=== PATIENT | female | born 1960 | race Caucasian/White ===

== ENCOUNTER → 2017-08-08 | Outpatient (CLI) | payer OTHER ==
--- NOTE | 2017-08-08 19:28 | Diagnostic Imaging Report ---
INDICATION: Routine screening. Comparison is made with prior study from 01/24/2013. 2-D and 3-D bilateral screening mammography was performed with CAD. The current study was also evaluated with a Computer Aided Detection (CAD) system. FINDINGS: Both breasts are heterogeneously dense, limiting the sensitivity of mammography. No dominant mass or malignant-appearing microcalcifications are seen. The axillae are unremarkable. IMPRESSION: No mammographic features suspicious for malignancy are identified. ACR BI-RADS Category 1: Negative. Result letter will be mailed to the patient. Note: At least 10% of breast cancer is not imaged by mammography. Dictated by: Dictated on workstation # [id number]
== END ==
LOC: RAD 14:37
PROVIDERS: ATTEND Nurse Practitioner
DX: Z12.31 Encounter for screening mammogram for malignant neoplasm of breast (principal)
CPT/HCPCS: 77067

== ENCOUNTER → 2018-05-12 | Outpatient (CLI) | payer OTHER | LOC: CARD 11:18 | PROVIDERS: ATTEND Nurse Practitioner Family | DX: R07.9 Chest pain, unspecified (principal) | CPT/HCPCS: 93005 ==

== ENCOUNTER 2020-04-22 18:44 | Emergency (ER) | payer OTHER ==
[~2020-04-22] VITALS: Ht 160 cm; Wt 83.4 kg
--- NOTE | 2020-04-22 19:22 | ED Lower Extremity ---
General Chief Complaint: Lower Extremity Stated Complaint: R FOOT PAIN / INJ Source: patient Exam Limitations: no limitations History of Present Illness Date Seen by Provider: Apr 22, 2020 Time Seen by Provider: 19:16 Initial Comments This is a well-appearing 60-year-old female who presents to the ER with complaints of right ankle pain and medial right foot pain after rolling her ankle in a parking lot around 3pm this afternoon. States she caught herself prior to falling so she did not sustain any other injury. Was able to walk on affected extremity right after incident, however after walking a while in [facility] pain became increasingly worse especially with ambulation. No pre-treatment prior to arrival. Allergies and Home Medications Allergies Coded Allergies: NKANo Known Allergies (Unverified Allergy, Mild, 10/17/08) diphenhydramine HCl (Unverified Adverse Reaction, 10/23/10) too sleepy Patient Home Medication List Home Medication List Reviewed: Yes Review of Systems Constitutional: no symptoms reported EENTM: no symptoms reported Respiratory: no symptoms reported Cardiovascular: no symptoms reported Gastrointestinal: no symptoms reported Genitourinary: no symptoms reported Musculoskeletal: see HPI Skin: no symptoms reported Psychiatric/Neurological: No Symptoms Reported Physical Exam Vital Signs Vital Signs - First Documented 04/22/20 04/22/20 19:11 20:36 Temp 36.9 Pulse 63 Resp 16 B/P (MAP) 173/93 (119) Pulse Ox 100 O2 Delivery Room Air Capillary Refill : Height, Weight, BMI Height: '" Weight: lbs. oz. kg; BMI Method: General Appearance: WD/WN, no apparent distress HEENT: PERRL/EOMI, normal ENT inspection Neck: full range of motion, normal inspection Cardiovascular: normal peripheral pulses, regular rate, rhythm, no murmur Respiratory: lungs clear, normal breath sounds Ankles: left ankle non-tender, left ankle normal inspection, left ankle normal range of motion, left ankle no evidence of injury; right ankle limited range of motion, right ankle soft tissue tenderness, right ankle swelling Feet: left foot non-tender, left foot normal inspection, left foot normal range of motion, left foot no evidence of injury; right foot soft tissue tenderness Neurologic/Tendon: normal sensation, normal motor functions, normal tendon functions Neurologic/Psychiatric: no motor/sensory deficits, alert, normal mood/affect, oriented x 3 Skin: normal color, warm/dry; No ecchymosis Progress/Results/Core Measures Results/Orders My Orders Orders - JESUS LU APRN Ankle, Right, 3 Views (04/22/20 19:27) Foot, Right, 3 View (04/22/20 19:27) Vital Signs/I&O 04/22/20 04/22/20 19:11 20:36 Temp 36.9 36.9 Pulse 63 61 Resp 16 16 B/P (MAP) 173/93 (119) 155/89 (119) Pulse Ox 100 O2 Delivery Room Air Room Air Progress Progress Note : Progress Note Patient examined. Noted to have moderate amount of right medial ankle swelling. Had point tenderness over first and second metatarsal. Orders placed for radiographs of the right ankle and right foot to evaluate for acute fractures. Radiographs reviewed and questionable fracture over base of left 5th metatarsal, correlate with point tenderness. Reexamined foot and has no point tenderness over the third through fifth metatarsals. Reviewed RICE therapy and recommendations for follow-up if pain persist after 7 to 10 days. Reviewed discharge plan and she is agreeable with plan. Ankle was Jose wrapped and provided with ice pack prior to discharge. Diagnostic Imaging Diagonstic Imaging: Xray Plain Films/CT/US/NM/MRI: other (foot) Comments NAME: JAMES PASTRANA [facility] REC#: [id number] PT STATUS: DEP ER : 1960 PHYSICIAN: JESUS LU APRN ADMIT DATE: 04/22/20/ER Signed Date of Exam:04/22/20 FOOT, RIGHT, 3 VIEW HISTORY: Right foot injury, trauma, right foot pain TECHNIQUE: 3 views of the right foot COMPARISON: None FINDINGS: No acute fracture or dislocation is seen in the right foot. Alignment appears normal. Joint spaces are generally preserved. There is calcaneal enthesopathy. There is linear lucency at the base of the 5th metatarsal seen on the lateral view only. This is not seen on any other view and no significant adjacent edema is appreciated and this is thought to represent artifact from overlapping structures. IMPRESSION: 1. Linear lucency at the base of the right 5th metatarsal seen on a single view. This is thought to represent artifact from overlapping structures, however recommend correlation with point tenderness to this location to exclude acute fracture. Dictated by: Dictated on workstation # [id number] Dict: 04/22/202008 Trans: 04/22/202251 [facility] [id number] Interpreted by: JOSE FRANKLIN MD Electronically signed by: JOSE FRANKLIN MD 04/22/202251 Reviewed: Reviewed by Me Diagonstic Imaging: Xray Plain Films/CT/US/NM/MRI: ankle Comments NAME: JAMES PASTRANA [facility] REC#: [id number] PT STATUS: DEP ER : 1960 PHYSICIAN: JESUS LU GUIDANCE ADVISER ADMIT DATE: 04/22/20/ER Signed Date of Exam:04/22/20 ANKLE, RIGHT, 3 VIEWS HISTORY: Right ankle pain after trauma COMPARISON: None TECHNIQUE: 3 views of the right ankle FINDINGS: No acute fracture is seen in the right ankle. Alignment appears normal. The ankle mortise is symmetric. Small irregularity at the tip of the lateral malleolus appears to be chronic, maybe from remote trauma. There is mild lateral soft tissue swelling. There is a plantar calcaneal enthesophyte. IMPRESSION: 1. Mild soft tissue swelling about the right ankle with no acute osseous abnormality seen. Dictated by: Dictated on workstation # [id number] Dict: 04/22/202007 Trans: 04/22/202251 [facility] [id number] Interpreted by: JOSE FRANKLIN MD Electronically signed by: JOSE FRANKLIN MD 04/22/202251 Reviewed: Reviewed by Me Departure Impression Primary Impression: Sprain and strain of ankle Disposition: 01 HOME, SELF-CARE Condition: Improved Departure-Patient Inst. Decision time for Depature: 20:22 Referrals: LEXY SPARKS MD (PCP/Family) Primary Care Physician Patient Instructions: Sprain (DC) Add. Discharge Instructions: Plan: 1. Discharge home. Tylenol or Ibuprofen as needed per package for pain. 2. Follow up with your provider if symptoms persist over 7-10 days. 3. Keep affected site elevated above your heart over the next 72 hours to reduce swelling and pain. 4. Apply ice 20 minutes at a time 4-6x per day. 5. Return to ER for any new, worsening, or concerning symptoms. All discharge instructions reviewed with patient and/or family. Voiced understanding. JESUS LU GUIDANCE ADVISER Apr 22, 2020 19:22
--- NOTE | 2020-04-22 20:11 | Diagnostic Imaging Report ---
HISTORY: Right ankle pain after trauma COMPARISON: None TECHNIQUE: 3 views of the right ankle FINDINGS: No acute fracture is seen in the right ankle. Alignment appears normal. The ankle mortise is symmetric. Small irregularity at the tip of the lateral malleolus appears to be chronic, maybe from remote trauma. There is mild lateral soft tissue swelling. There is a plantar calcaneal enthesophyte. IMPRESSION: 1. Mild soft tissue swelling about the right ankle with no acute osseous abnormality seen. Dictated by: Dictated on workstation # [id number]
--- NOTE | 2020-04-22 20:13 | Diagnostic Imaging Report ---
HISTORY: Right foot injury, trauma, right foot pain TECHNIQUE: 3 views of the right foot COMPARISON: None FINDINGS: No acute fracture or dislocation is seen in the right foot. Alignment appears normal. Joint spaces are generally preserved. There is calcaneal enthesopathy. There is linear lucency at the base of the 5th metatarsal seen on the lateral view only. This is not seen on any other view and no significant adjacent edema is appreciated and this is thought to represent artifact from overlapping structures. IMPRESSION: 1. Linear lucency at the base of the right 5th metatarsal seen on a single view. This is thought to represent artifact from overlapping structures, however recommend correlation with point tenderness to this location to exclude acute fracture. Dictated by: Dictated on workstation # [id number]
[2020-04-22 20:36] VITALS: BP 155/89
== END 2020-04-22 20:36 | disposition home or self-care (01) ==
LOC: EDUNIT# 18:44 → ER 18:45
DX: S93.401A Sprain of unspecified ligament of right ankle, initial encounter (principal); Z88.8 Allergy status to other drugs, medicaments and biological substances; X50.1XXA Overexertion from prolonged static or awkward postures, initial encounter
CPT/HCPCS: 73610; 73630

== ENCOUNTER 2020-10-26 19:24 | Emergency (ER) | payer OTHER ==
[~2020-10-26] VITALS: Ht 160 cm; Wt 83.1 kg
[~2020-10-26 19:24] MED LIST: METO50TA7 PO; SIMV10TA26 PO
--- OUTSIDE RECORDS SUMMARY | 2020-10-26 19:29 | XMS REPORT | CCD ---
Author Author Kelli Gutierrez Organization Hue Gutierrez MD, [facility] Address [address] [place] [address] Phone Care Team Providers Care Binitrotoluene Operator Name Role Phone Hue Gutierrez PP Unavailable CCM Unavailable Summary Purpose Interface Exchange Insurance Providers Payer name Policy type / Coverage type Covered constitution party ID Effective Begin Date Effective End Date [employer] Commercial [employer] [id number] Unknown Unknown Family history Father Diagnosis Age At Onset Cancer Unknown Hypertension Unknown Hypercholesterolemia Unknown Mother Diagnosis Age At Onset Diabetes mellitus Type 2 Unknown Hypercholesterolemia Unknown Hypertension Unknown Son Diagnosis Age At Onset Hypercholesterolemia Unknown Hypertension Unknown Sister Diagnosis Age At Onset Hypercholesterolemia Unknown Hypertension Unknown Sister Diagnosis Age At Onset Hypertension Unknown Hypercholesterolemia Unknown Social History Social History Element Codes Description Effective Dates Marital status Unknown Michael "Arsh" 01/24/2020 Number of children Unknown 3 two kids in - one kid in [place] 01/24/2020 Employment Unknown Retired 01/24/[address]: 240754353 Never smoker 01/24/[address]: 035306 Currently drinks alcohol 01/23 Allergies, Adverse Reactions, Alerts Substance Reaction Codes Entered Date Inactivated Date Status NO KNOWN DRUG ALLERGIES Unknown 01/24/2020 No Inactive Date Active Problems Condition Codes Effective Dates Condition Status Well woman exam with routine gynecological exam ICD-10 : Z01.419 ICD-9: V72.31 10/09/2020 Active Dizziness ICD-10: R42 ICD-9: 780.4 01/24/2020 Active Essential (primary) hypertension ICD-10: I10 ICD-9: 401.1 01/24/2020 Active Mixed hyperlipidemia ICD-10: E78.2 ICD-9: 272.2 01/24/2020 Active Well adult exam ICD-10: Z00.00 ICD-9: V70.0 01/24/2020 Active Medications Medication Codes Instructions Start Date Stop Date Status Fill Instructions simvastatin 10 mg tablet RxNorm: 548201 Take 1 Tablet(s ) Oral every night at bedtime 10/09/2020 07/05/2021 Active metoprolol succinate ER 50 mg tablet,extended release 24 hr RxNorm: 323154 1 Tablet(s) Oral every day 10/01/2020 02/27/2021 Active simvastatin 10 mg tablet RxNorm: 109968 1 Tablet(s) Oral every day 01/24/2020 10/08/2020 Inactive metoprolol succinate ER 50 mg tablet,extended release 24 hr RxNorm: 649358 1 Tablet(s) Oral every day 01/24/2020 10/01/2020 Inactive Medication Administered No Medication Administered data Immunizations Vaccine Codes Date Status Influenza CVX: 135 11/21/2018 Pneumococcal (Adult) CVX: 33 11/21/2018 Tetanus/Diptheria CVX: 09 06/21/2013 Results Observation Observation Code Item Item Code Result Date S ervice Location THINPREP PAP P180 Acc #: [id number] 10/14/2020 Unkno wn THINPREP PAP P180 Specimen Type: ThinPrep Vial 021 Unknown THINPREP PAP P180 SOURCE: Cervix 10/14/2020 Unknow n THINPREP PAP P180 Specimen Adequacy: See Note 10/15/19 21 Unknown THINPREP PAP P180 Diagnostic Category: Negativ e for Intraepithelial Lesion or Malignancy 10/14/2020 Unknown THINPREP PAP P180 INTERPRETATION: Negative for malignant and or dysplastic cells. 10/14/2020 Unknown THINPREP PAP P180 Cytotech Inits: aellmd 10/14/2020 Unknown THINPREP PAP P180 Date Authorized: 10/14/2020 10/15/19 21 Unknown THINPREP PAP P180 PAP Disclaimer See Note 10/14/2020 U nknown THINPREP PAP P180 LMP MENOPAUSE 10/14/2020 Unkno wn Procedures No Procedures data Vital Signs Date Vital 10/09/2020 Blood Pressure 1: 154/100 Code: 8480-6 BMI: 31.7 Code: 25135-1 Heart Rate 1: 63 bpm Height: 5'3" Code: 8302-2 SpO2: 97% Temperature: 3 6.1 (C) / 97.0 (F) Weight: 179 lbs Code: 96861-0 01/24/2020 Blood Pressure 1: 130/80 Code: 8480-6 BMI: 32.1 Code: 82331-6 Heart Rate 1: 66 bpm Height: 5'3" Code: 8302-2 Respiratory Rate: 18 bpm SpO2: 99% Temperature: 36.4 (C) / 97.5 (F) Weight: 181 lbs Code: 28973-3 Functional Status No Functional Status data Reason For Visit Reason For Visit Effective Dates Notes well woman exam (40-65 years) 10/09/2020 dizziness 01/24/2020 Encounters Encounter Performer Location Codes Date (03651) PREV VISIT EST AGE 40-64 Diagnosis: Well woman exam with routine gynecological exam[ICD10: Z01.419] [facility] CPT-4: 80168 10/09/2020 (36584) PREV VISIT NEW AGE 40-64 Diagnosis: Well adult exam[ICD10: Z00.00] [facility] CPT-4: 76039 01/24/2020 Plan of Care Planned Activity Notes Codes Status Date Visit Plan: Well Adult Female - exam com pleted. Pap and breast exam completed. Pt will be called with results of her testing. She was advised to continue with yearly annual exams. Safe sex practices discussed during office visit today. Call if any abnormal gynecologic issues during the next year, otherwise, RTC yearly or prn. Hypertension - uncontrolled - The patient has been counseled to cut back on salt in diet for a no added salt diet, low fat diet, start an exercise program with low weight bearing exercises and higher aerobic activity for heart health. The patient is to check blood pressure readings as an o utpatient and either fax, call, or email the readings to the office next week for practitioner to review. The pt is to call for acute concerns. Hyperlipidemia - pt has been counseled about appropriate diet, exercise, and need for low fat food choices. I have discussed the need for the patient to take medications as prescribed. If the patient has negative side effects from the medication, they are to CALL the office and not abruptly discontinue the medication without discussion with a practitioner in the office. We will check labs in 3-6 months for follow up on the patient's chronic medical problem and to assure normal liver response to medications. 10/09/2020 Appointment: [facility] [phone] [phone] (30 min) Complex 10/09/2020 Patient Education: Patient Medication Summary Completed 10/09/2020 Care Plan: SCREENINGMAMMOGRAPHYDIGITAL L OINC : 90606-2 Pending 10/09/2020 Care Plan: Cbc With Differential Pending 01/26/2020 Care Plan: Comp Metabolic Pending Care Plan: Lipid Pending 01/26/2020 Care Plan: Tsh Pending 01/26/2020 Visit Plan: Well Adult - pt was counsele d about diet, exercise, and encouraged to follow a heart healthy diet and increase activity level. The patient was instructed to RTC yearly for well adult exams and PRN for acute illnesses. The pt was also instructed to have yearly labs for check of cholesterol, thyroid, chem panel, CBC, and renal functioning. Hypertension - well controlled - continue with current medications, continue with no added salt diet. Pt has been encouraged to exercise daily. The pt has been advised to call the office if there are any acute concerns about change in blood pressure readings at home. Hyperlipidemia - pt has been counseled about appropriate diet, exercise, and need for low fat food choices. I have discussed the need for the patient to take medications as prescribed. If the patient has negative side effects from the medication, they are to CALL the office and not abruptly discontinue the medication without discussion with a practitioner in the office. We will check labs in 3-6 months for follow up on the patient's chronic medical problem and to assure normal liver response to medications. Dizziness - concern for possible sinus congestion causing the dizziness - RX for flonase OTC to be used, call if not improving. 01/24/2020 Appointment: [facility] Gutierrez [facility]el[facility] [phone] [id number] [place] New Patient 01/24/2020 Patient Education: Patient Medication Summary Completed 01/24/2020 Patient Education: Cholesterol Management Completed 01/24/[address] GILLILAND FOR COLONOSCOPY MAMMOGRAM MONITOR BLOOD PRESSURE TWICE DAILY AND CALL WITH READINGS IN 1 WEEK RESTART CHOLESTEROL MEDICATION RECHECK LABS IN 3 MONTHS . Well Adult Female - exam completed. P ap and breast exam completed. Pt will be called with results of her testing. She was advised to continue with yearly annual exams. Safe sex practices discussed during office visit today. Call if any abnormal gynecologic issues during the next year, otherwise, RTC yearly or prn. Hypertension - uncontrolled - The patient has been counseled to cut back on salt in diet for a no added salt diet, low fat diet, start an exercise program with low weight bearing exercises and higher aerobic activity for heart health. The patient is to check blood pressure readings as an outpatient and either fax, call, or email the readings to the office next week for practitioner to review. The pt is to call for acute concerns. Hyperlipidemia - pt has been counseled about appropriate diet, exercise, and need for low fat food choices. I have discussed the need for the patient to take medications as prescribed. If the patient has negative side effects from the medication, they are to CALL the office and not abruptly discontinue the medication without discussion with a practitioner in the office. We will check labs in 3-6 months for follow up on the patient's chronic medical problem and to assure normal liver response to medications. . Well Adult - pt was counseled about di et, exercise, and encouraged to follow a heart healthy diet and increase activity level. The patient was instructed to RTC yearly for well adult exams and PRN for acute illnesses. The pt was also instructed to have yearly labs for check of cholesterol, thyroid, chem panel, CBC, and renal functioning. Hypertension - well controlled - continue with current medications, continue with no added salt diet. Pt has been encouraged to exercise daily. The pt has been advised to call the office if there are any acute concerns about change in blood pressure readings at home. Hyperlipidemia - pt has been counseled about appropriate diet, exercise, and need for low fat food choices. I have discussed the need for the patient to take medications as prescribed. If the patient has negative side effects from the medication, they are to CALL the office and not abruptly discontinue the medication without discussion with a practitioner in the office. We will check labs in 3-6 months for follow up on the patient's chronic medical problem and to assure normal liver response to medications. Dizziness - concern for possible sinus congestion causing the dizziness - RX for flonase OTC to be used, call if not improving. Medical Equipment No Medical Equipment data Health Concerns Section Health Concerns data not found Goals Section Goals data not found Interventions Section Interventions data not found Health Status Evaluations/Outcomes Section Health Status Evaluations/Outcomes data not found Advance Directives No Advance Directive data
--- OUTSIDE RECORDS SUMMARY | 2020-10-26 19:29 | XMS REPORT | CCD ---
Author Author Kelli Gutierrez Organization Hue Gutierrez MD, [facility] Address [address] [place] [address] Phone Care Team Providers Care Rewinder Operator Name Role Phone Hue Gutierrez PP Unavailable CCM Unavailable Summary Purpose Interface Exchange Insurance Providers Payer name Policy type / Coverage type Covered democrat ID Effective Begin Date Effective End Date aetna Commercial Insurance [id number] Unknown Unknown Family history Father Diagnosis Age [...] two kids in - one kid in [place] 01/24/2020 Employment Unknown Retired 01/24/[address]: 562220168 Never smoker 01/24/[address]: 211747 Currently drinks alcohol 01/23 Allergies, Adverse Reactions, Alerts Substance Reaction Codes Entered Date Inactivated Date Status NO KNOWN DRUG ALLERGIES Unknown 01/24/2020 No Inactive Date Active Problems Condition Codes Effective Dates Condition Status Dizziness ICD-10: R42 ICD-9: 780.4 01/24/2020 Active Essential (primary) hypertension ICD-10: I10 ICD-9: 401.1 01/24/2020 Active Mixed hyperlipidemia ICD-10: E78.2 ICD-9: 272.2 01/24/2020 Active Well adult exam ICD-10: Z00.00 ICD-9: V70.0 01/24/2020 Active Medications Medication Codes Instructions Start Date Stop Date Status Fill Instructions metoprolol succinate ER 50 mg tablet,extended release 24 hr RxNorm: 329213 1 Tablet(s) Oral every day 10/01/2020 02/27/2021 Active simvastatin 10 mg tablet RxNorm: 213540 1 Tablet(s) Oral every day 01/24/2020 No Stop Date Active metoprolol succinate ER 50 mg tablet,extended release 24 hr RxNorm: 021807 1 Tablet(s) Oral every day 01/24/2020 10/01/2020 Inactive Medication Administered No Medication Administered data Immunizations Vaccine Codes Date Status Influenza CVX: 135 11/21/2018 Pneumococcal (Adult) CVX: 33 11/21/2018 Tetanus/Diptheria CVX: 09 06/21/2013 Results No Results data Procedures No Procedures data Vital Signs Date Vital 01/24/2020 Blood Pressure 1: 130/80 Code: 8480-6 BMI: 32.1 Code: 90644-0 Heart Rate 1: 66 bpm Height: 5'3" Code: 8302-2 Respiratory Rate: 18 bpm SpO2: 99% Temperature: 36.4 (C) / 97.5 (F) Weight: 181 lbs Code: 79963-0 Functional Status No Functional Status data Reason For Visit Reason For Visit Effective Dates Notes dizziness 01/24/2020 Encounters Encounter Performer Location Codes Date (44455) PREV VISIT NEW AGE 40-64 Diagnosis: Well adult exam[ICD10: Z00.00] [facility] CPT-4: 07922 01/24/2020 Plan of Care Planned Activity Notes Codes Status Date Care Plan: Cbc With Differential Pending 01/26/2020 [...] not improving. 01/24/2020 Appointment: Hue Gutierrez WPtel: [address] [place], [place] [id number] New Patient 01/24/2020 Patient Education: Patient Medication Summary Completed 01/24/2020 Patient Education: Cholesterol Management Completed 01/24/2020 Instructions Comment . Well Adult - pt was counseled [...]
--- OUTSIDE RECORDS SUMMARY | 2020-10-26 19:29 | XMS REPORT | CCD ---
Author Author Kelli Gutierrez Organization Hue Gutierrez MD, [facility] Address [address] [place] [address] Phone Care Team Providers Care Salesperson Women'S Hats Name Role Phone Hue Gutierrez PP Unavailable CCM Unavailable Summary Purpose Interface Exchange Insurance Providers Payer name Policy type / Coverage type Covered green party ID Effective Begin Date Effective End Date aetna Commercial Insurance [id number] Unknown Unknown Family history Father Diagnosis Age [...] two kids in - one kid in [place] 01/24/2020 Employment Unknown Retired 01/24/[address]: 878765220 Never smoker 01/24/[address]: 689578 Currently drinks alcohol 01/23 Allergies, Adverse Reactions, [...] Fill Instructions simvastatin 10 mg tablet RxNorm: 759064 Take 1 Tablet(s ) Oral every night at bedtime 10/09/2020 07/05/2021 Active metoprolol succinate ER 50 mg tablet,extended release 24 hr RxNorm: 171762 1 Tablet(s) Oral every day 10/01/2020 02/27/2021 Active simvastatin 10 mg tablet RxNorm: 102804 1 Tablet(s) Oral every day 01/24/2020 10/08/2020 Inactive metoprolol succinate ER 50 mg tablet,extended release 24 hr RxNorm: 548542 1 Tablet(s) Oral every day 01/24/2020 10/01/2020 Inactive Medication Administered No Medication Administered data Immunizations Vaccine Codes Date Status Influenza CVX: 135 11/21/2018 Pneumococcal (Adult) CVX: 33 11/21/2018 Tetanus/Diptheria CVX: 09 06/21/2013 Results No Results data Procedures No Procedures data Vital Signs Date Vital 10/09/2020 Blood Pressure 1: 154/100 Code: 8480-6 BMI: 31.7 Code: 94695-1 Heart Rate 1: 63 bpm Height: 5'3" Code: 8302-2 SpO2: 97% Temperature: 3 6.1 (C) / 97.0 (F) Weight: 179 lbs Code: 36687-1 01/24/2020 Blood Pressure 1: 130/80 Code: 8480-6 BMI: 32.1 Code: 85959-6 Heart Rate 1: 66 bpm Height: 5'3" Code: 8302-2 Respiratory Rate: 18 bpm SpO2: 99% Temperature: 36.4 (C) / 97.5 (F) Weight: 181 lbs Code: 64598-3 Functional Status No Functional Status data Reason For Visit Reason For Visit Effective Dates Notes well woman exam (40-65 years) 10/09/2020 dizziness 01/24/2020 Encounters Encounter Performer Location Codes Date (74177) PREV VISIT EST AGE 40-64 Diagnosis: Well woman exam with routine gynecological exam[ICD10: Z01.419] [facility] CPT-4: 37517 10/09/2020 (83481) PREV VISIT NEW AGE 40-64 Diagnosis: Well adult exam[ICD10: Z00.00] [facility] CPT-4: 06648 01/24/2020 Plan of Care Planned Activity Notes [...] assure normal liver response to medications. 10/09/2020 Patient Education: Patient Medication Summary Completed 10/09/2020 Care Plan: SCREENINGMAMMOGRAPHYDIGITAL L OINC : 32906-7 Pending 10/09/2020 Care Plan: Cbc With Differential [...] improving. 01/24/2020 Appointment: [facility]rez [facility]el[facility] [address] [facility] [place] New Patient 01/24/2020 Patient Education: Patient [...]
[2020-10-26] MEDS ORDERED: fentaNYL INJ 100 MCG/2 ML AMP IVP STA (20:08)
[2020-10-26] MEDS ORDERED: LACTATED RINGERS 1,000 ML IV ONE (20:15)
[2020-10-26] MEDS ORDERED: ONDANSETRON 4 MG/2 ML (SDV) Z0FRAN IVP ONE (20:15)
[2020-10-26 20:22] LABS: BASOPHILS % (AUTO) 0 % (0-10); EOSINOPHILS # (AUTO) 0.1 10^3/uL (0.0-0.3); EOSINOPHILS % (AUTO) 1 % (0-10); HEMATOCRIT 49 % (35-52); LYMPHOCYTES # (AUTO) 1.5 10^3/uL (1.0-4.0); LYMPHOCYTES % (AUTO) 12 % (12-44); MEAN CORPUSCULAR HEMOGLOBIN 31 pg (25-34); MEAN CORPUSCULAR HGB CONC 33 g/dL (32-36); MEAN CORPUSCULAR VOLUME 94 fL (80-99); MEAN PLATELET VOLUME 9.9 fL (9.0-12.2); MONOCYTES # (AUTO) 0.7 10^3/uL (0.0-1.0); MONOCYTES % (AUTO) 5 % (0-12); NEUTROPHILS # (AUTO) 10.2 10^3/uL (1.8-7.8); NEUTROPHILS % (AUTO) 81 % (42-75); PLATELET COUNT 358 10^3/uL (130-400); WHITE BLOOD COUNT 12.5 10^3/uL (4.3-11.0)
[2020-10-26 20:27] LABS: ALBUMIN 4.5 GM/DL (3.2-4.5)
[2020-10-26 20:29] LABS: CALCIUM 9.8 MG/DL (8.5-10.1)
[2020-10-26 20:30] LABS: TOTAL PROTEIN 8.1 GM/DL (6.4-8.2)
[2020-10-26 20:32] LABS: BILIRUBIN,TOTAL 0.4 MG/DL (0.1-1.0)
[2020-10-26 20:33] LABS: CREATININE SERUM 0.93 MG/DL (0.60-1.30)
[2020-10-26 20:36] LABS: MAGNESIUM 2.2 MG/DL (1.6-2.4)
--- NOTE | 2020-10-26 20:55 | ED Abdominal Pain ---
General Chief Complaint: Abdominal/GI Problems Stated Complaint: ABD PAIN / CRAMPING / NVD Nursing Triage Note: Patient states she began having abdominal pain with nausea and diarrhea on the . states she has been unable to get relief with over the counter medications and continues to have 2-3 episodes of diarrhea daily. as well as nausea. Source of Information: Patient, Family Exam Limitations: No Limitations History of Present Illness Date Seen by Provider: Oct 26, 2020 Time Seen by Provider: 19:50 Initial Comments Here with report of intermittent abdominal pain over the last 3 days that is epigastric and to the right upper quadrant. States that does not seem to be dependent on eating or drinking and is getting worse. Denies fever or chills. Does have diarrhea. Denies blood in her vomit or stool. Still has her gallbladder. She is due to get colonoscopy on Tuesday of this week for her 10- year exam. Last colonoscopy negative. States pain is moderate in intensity and the nausea is quite significant currently. She is vaccinated for COVID-19. Timing/Duration: 2-3 Days, Getting Worse, Intermittent Severity/Quality: Moderate, Aching Location: RUQ, Epigastric Radiation: No Radiation Activities at Onset: None Modifying Factors: Worsens With Movement Associated Symptoms: No Back Pain, No Chest Pain, No Diaphoresis, No Fever/Chills; Nausea/Vomiting; No Shortness of Air, No Weakness Allergies and Home Medications Allergies Coded Allergies: NKANo Known Allergies (Unverified Allergy, Mild, 10/17/08) diphenhydramine HCl (Unverified Adverse Reaction, Unknown, 10/26/20) too sleepy Patient Home Medication List Home Medication List Reviewed: Yes Metoprolol Succinate (Metoprolol Succinate) 50 Mg Tab.er.24h, 50 MG PO DAILY, (Reported) Entered as Reported by: BE MCCLURE on 10/23/20941 Simvastatin (Simvastatin) 10 Mg Tablet, 10 MG PO HS, (Reported) Entered as Reported by: BE MCCLURE on 10/23/20941 Sucralfate (Sucralfate) 1 Gm Tablet, 1 GM PO ACHS Prescribed by: MARITZA CONROY on 10/26/20 9316 Review of Systems Review of Systems Constitutional: see HPI; No chills, No fever EENTM: No Nose Congestion, No Throat Pain Respiratory: Denies Cough, Denies Shortness of Air Cardiovascular: Denies Chest Pain, Denies Edema Gastrointestinal: Abdominal Pain, Diarrhea, Nausea, Vomiting Genitourinary: No Symptoms Reported Musculoskeletal: no symptoms reported Skin: no symptoms reported All Other Systems Reviewed Negative Unless Noted: Yes Past Fwmhsbt-Lescmy-Bpenaj Hx Patient Social History Tobacco Use?: No Use of E-Cig and/or Vaping dev: No Substance use?: No Alcohol Use?: No Pt feels they are or have been: No Immunizations Up To Date First/Initial COVID19 Vaccinat: April 28 2020 Second COVID19 Vaccination Rey: May 26 2020 COVID19 Vaccine Emergency Management System Director: Moderna Past Medical History Surgeries: Yes Hysterectomy, Tonsillectomy Respiratory: No Cardiac: Yes High Cholesterol, Hypertension 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 oz. kg; 32.00 BMI Method: General Appearance: WD/WN, no apparent distress HEENT: PERRL/EOMI, pharynx normal Neck: full range of motion, supple Respiratory: lungs clear, normal breath sounds Cardiovascular: regular rate, rhythm, no murmur Gastrointestinal: soft; No guarding, No rebound; tenderness (Epigastric and right upper quadrant) Neurologic/Psychiatric: alert, normal mood/affect, oriented x 3 Skin: normal color, warm/dry Progress/Results/Core Measures Results/Orders Lab Results Laboratory Tests Test 10/26/20 19:55 10/26/20 21:15 Range/Units White Blood Count 12.5 H 4.3-11.0 10^3/uL Red Blood Count 5.22 H 3.80-5.11 10^6/uL Hemoglobin 16.0 11.5-16.0 g/dL Hematocrit 49 35-52 % Mean Corpuscular Volume 94 80-99 fL Mean Corpuscular Hemoglobin 31 25-34 pg Mean Corpuscular Hemoglobin Concent 33 32-36 g/dL Red Cell Distribution Width 12.0 10.0-14.5 % Platelet Count 358 130-400 10^3/uL Mean Platelet Volume 9.9 9.0-12.2 fL Immature Granulocyte % (Auto) 1 % Neutrophils (%) (Auto) 81 H 42-75 % Lymphocytes (%) (Auto) 12 12-44 % Monocytes (%) (Auto) 5 0-12 % Eosinophils (%) (Auto) 1 0-10 % Basophils (%) (Auto) 0 0-10 % Neutrophils # (Auto) 10.2 H 1.8-7.8 10^3/uL Lymphocytes # (Auto) 1.5 1.0-4.0 10^3/uL Monocytes # (Auto) 0.7 0.0-1.0 10^3/uL Eosinophils # (Auto) 0.1 0.0-0.3 10^3/uL Basophils # (Auto) 0.0 0.0-0.1 10^3/uL Immature Granulocyte # (Auto) 0.1 0.0-0.1 10^3/uL Sodium Level 140 135-145 MMOL/L Potassium Level 4.0 3.6-5.0 MMOL/L Chloride Level 105 98-107 MMOL/L Carbon Dioxide Level 23 21-32 MMOL/L Anion Gap 12 5-14 MMOL/L Blood Urea Nitrogen 10 7-18 MG/DL Creatinine 0.93 0.60-1.30 MG/DL Estimat Glomerular Filtration Rate 61 BUN/Creatinine Ratio 11 Glucose Level 138 H 70-105 MG/DL Calcium Level 9.8 8.5-10.1 MG/DL Corrected Calcium 9.4 8.5-10.1 MG/DL Magnesium Level 2.2 1.6-2.4 MG/DL Total Bilirubin 0.4 0.1-1.0 MG/DL Aspartate Amino Transf (AST/SGOT) 18 5-34 U/L Alanine Aminotransferase (ALT/SGPT) 19 0-55 U/L Alkaline Phosphatase 90 40-136 U/L C-Reactive Protein High Sensitivity 0.28 0.00-0.50 MG/DL Total Protein 8.1 6.4-8.2 GM/DL Albumin 4.5 3.2-4.5 GM/DL Lipase 47 8-78 U/L Urine Color YELLOW Urine Clarity CLEAR Urine pH 6.5 5-9 Urine Specific [place] <=1.005 1.016-1.022 Urine Protein NEGATIVE NEGATIVE Urine Glucose (UA) NEGATIVE NEGATIVE Urine Ketones NEGATIVE NEGATIVE Urine Nitrite NEGATIVE NEGATIVE Urine Bilirubin NEGATIVE NEGATIVE Urine Urobilinogen 0.2 < = 1.0 MG/DL Urine Leukocyte Esterase NEGATIVE NEGATIVE Urine RBC (Auto) TRACE-I NEGATIVE Urine RBC RARE /HPF Urine WBC 0-2 /HPF Urine Squamous Epithelial Cells 2-5 /HPF Urine Crystals PRESENT H /LPF Urine Amorphous Sediment RARE BISI URATES H /LPF Urine Bacteria FEW H /HPF Urine Casts NONE /LPF Urine Mucus NEGATIVE /LPF Urine Culture Indicated YES My Orders Orders - MARITZA CONROY MD Cbc With Automated Diff (10/26/20 20:08) Comprehensive Metabolic Panel (10/26/20 20:08) Hs C Reactive Protein (10/26/20 20:08) Lipase (10/26/20 20:08) Magnesium (10/26/20 20:08) Ua Culture If Indicated (10/26/20 20:08) Ed Iv/Invasive Line Start (10/26/20 20:08) Lactated Ringers (Lr 1000 Ml Iv Solution (10/26/20 20:15) Ondansetron Injection (Zofran Injectio (10/26/20 20:15) Fentanyl Inj (Sublimaze Injection) (10/26/20 20:08) Ct Abdomen/Pelvis W (10/26/20 20:37) Iohexol Injection (Omnipaque 350 Mg/Ml 1 (10/26/20 21:00) Received Contrast (Hold Metformin- Contr (10/26/20 21:00) Ns (Ivpb) (Sodium Chloride 0.9% Ivpb Bag (10/26/20 21:00) Urine Culture (10/26/20 21:15) Sucralfate Tablet (Carafate Tablet) (10/26/20 22:00) Pantoprazole Injection (Protonix Injecti (10/26/20 22:00) Famotidine Injection (Pepcid Injection) (10/26/20 21:52) Medications Given in ED Current Medications Medications Dose Ordered Sig/Andreas Route Start Time Stop Time Status Last Admin Dose Admin Iohexol 100 ml ONCE ONCE IV 10/26/20 21:00 9/5/21 21:01 DC 10/26/20 21:02 100 ML Lactated Ringer's 1,000 ml @ 0 mls/hr Q0M ONCE IV 10/26/20 20:15 10/26/20 20:16 DC 10/26/20 20:22 1,000 MLS/HR Ondansetron HCl 4 mg ONCE ONCE IVP 10/26/20 20:15 10/26/20 20:16 DC 10/26/20 20:22 4 MG Pantoprazole 40 mg ONCE ONCE IV 10/26/20 22:00 10/26/20 22:01 DC 10/26/20 22:03 40 MG Sodium Chloride 100 ml ONCE ONCE IV 10/26/20 21:00 10/26/20 21:01 DC 10/26/20 21:02 80 ML Sucralfate 1 gm ONCE ONCE PO 10/26/20 22:00 10/26/20 22:01 DC 10/26/20 22:03 1 GM Vital Signs/I&O 10/26/20 19:55 Temp 35.7 Pulse 57 Resp 22 B/P (MAP) 181/92 (121) Pulse Ox 98 O2 Delivery Room Air Blood Pressure Mean: 121 Progress Progress Note : Progress Note Seen and evaluated. IV, labs, LR 1 L bolus, Zofran 4 mg IV, fentanyl 50 mcg IV, CT abdomen pelvis ordered. IV established by me via ultrasound guidance to the left AC with 20-gauge Angiocath x1 stick due to difficulty in IV starts. Monitor patient. 2149: Patient is much better now. CT results noted. She does have liver cyst that appear to be benign and this was discussed with the patient. There is concerns of small hiatal hernia. Symptoms are more consis tent with this especially as the gallbladder does appear to be normal on CT. We will go ahead and initiate Carafate 1 g p.o. now continue that 4 times daily. Protonix 40 mg IV and Pepcid 20 mg IV ordered for now. She does have colonoscopy scheduled on Tuesday with Dr. Watkins. She would benefit from upper endoscopy as well. I did discuss this with Dr. Gutierrez. She recommends that I send copy of the chart to Dr. Watkins which I will do. She can discuss this with Dr. Watkins as well. Overall improved. Discharged home with return precautions. Patient verbalized understanding instructions and agreement with plan. 0005: Remains improved. Discharged home. Diagnostic Imaging Diagonstic Imaging: CT Plain Films/CT/US/NM/MRI: abdomen, pelvis Comments NAME: J[facility] REC#: [id number] PT STATUS: REG ER : 1960 PHYSICIAN: MARITZA CONROY MD ADMIT DATE: 10/26/20/ER Draft Date of Exam:10/26/20 CT ABDOMEN/PELVIS W CT abdomen/pelvis with contrast. TECHNIQUE: Multiple contiguous axial images were obtained through the abdomen and pelvis after administration of intravenous contrast. All CT scans use one or more of the following dose optimizing techniques: automated exposure control, MA and/or KvP adjustment based on patient size and exam type or iterative reconstruction. INDICATION: Upper abdominal pain. COMPARISON: None available. FINDINGS: Lower chest: The lung bases are clear. No pericardial or pleural effusion. Peritoneum: No free intraperitoneal air or fluid. Liver and biliary system: There are a few cysts within the liver, the largest measuring 3.8 x 3.3 cm in the left hepatic lobe. No concerning focal hepatic lesion. Portal vein is patent. The gallbladder is normal. No biliary duct dilation. Spleen and Pancreas: Spleen is normal. The pancreas enhances normally without mass lesion or peripancreatic inflammatory change. Adrenals: Normal. tract: The kidneys enhance normally without suspicious mass or obstruction. Urinary bladder is distended without wall thickening. No renal or ureteral stone. Hysterectomy. No adnexal mass. GI tract: Small hiatal hernia. Stomach is partially filled with fluid and has no wall thickening. No bowel obstruction. Extensive diverticulosis of the descending and sigmoid colon. No associated inflammatory changes to indicate diverticulitis. Appendix is normal. Vasculature and Lymph nodes: Normal caliber aorta. No abdominal or pelvic lymphadenopathy. Musculoskeletal: No concerning osseous lesion. IMPRESSION: 1. No acute inflammatory or obstructive process. 2. Descending and sigmoid colon diverticulosis without diverticulitis. 3. Small hiatal hernia. Dictated on workstation # [id number] Dict: 10/26/202126 Trans: 10/26/202133 [facility] [id number] Interpreted by: MARYURI LEÓN MD Electronically signed by: Departure Impression Primary Impression: Epigastric abdominal pain Additional Impression: Hiatal hernia Disposition: HOME, SELF-CARE Condition: Improved Departure-Patient Inst. Decision time for Depature: 21:55 Referrals: MARKUS WATKINS MD, HOLLY A MD (PCP/Family) Primary Care Physician Patient Instructions: Hiatal Hernia, Severe Abdominal Pain, Adult (DC) Add. Discharge Instructions: All discharge instructions reviewed with patient and/or family. Voiced understanding. Call Dr. Watkins's office on Tuesday to discuss the CT results and for consideration for upper endoscopy (scope) with the colonoscopy that you have scheduled for Tuesday. You should initiate xeey-tmh-umjndia omeprazole 20 mg daily. You can purchase this bgni-tes-rfmorbb in up to 6-week packs. Go ahead and purchase the 6-week pack and take it daily for 6 weeks. You may also take uedu-rvk-[id number] Pepcid or the generic famotidine 20 mg daily as needed for reflux symptoms or upper middle abdominal pain. Avoid spicy foods or acidic foods in your diet to decrease stomach acid. Take other medications as directed. You do have a cyst on the liver that appear to be simple cyst at this time. You may discuss this further with Dr. Gutierrez as well to follow over time if needed. Return for worse pain, fever, vomiting, weakness, breathing problems or other concerns as needed. Scripts Sucralfate (Sucralfate) 1 Gm Tablet 1 GM PO ACHS, #56 TAB 1 Refill Chew tablet to a slurry and then swallow Prov: MARITZA CONROY MD 10/26/20 Copy Copies To 1: MARKUS WATKINS MD Copies To 2: LEXY GUTIERREZ MD, TIMOTHY D MD Oct 26, 2020 20:55
[2020-10-26] MEDS ORDERED: IOHEXOL 350 MG/ML 100 ML (OMNIPAQUE 350) VIAL IV ONE (21:00)
[2020-10-26] MEDS ORDERED: HOLD METFORMIN - RECEIVED CONTRAST 20 ML VIAL IV SCH (21:00)
[2020-10-26] MEDS ORDERED: NS 100 ML (IVPB) BAG IV ONE (21:00)
[2020-10-26 21:28] LABS: BILIRUBIN,URINE NEGATIVE (NEGATIVE); CLARITY,URINE CLEAR; COLOR,URINE YELLOW; GLUCOSE, URINE (UA) NEGATIVE (NEGATIVE); KETONES,URINE NEGATIVE (NEGATIVE); LEUKOCYTE ESTERASE ,URINE NEGATIVE (NEGATIVE); NITRITE,URINE NEGATIVE (NEGATIVE); PH,URINE 6.5 (5-9); PROTEIN,URINE NEGATIVE (NEGATIVE)
--- NOTE | 2020-10-26 21:35 | Diagnostic Imaging Report ---
CT abdomen/pelvis with contrast. TECHNIQUE: Multiple contiguous axial images were obtained through the abdomen and pelvis after administration of intravenous contrast. All CT scans use one or more of the following dose optimizing techniques: automated exposure control, MA and/or KvP adjustment based on patient size and exam type or iterative reconstruction. INDICATION: Upper abdominal pain. COMPARISON: None available. FINDINGS: Lower chest: The lung bases are clear. No pericardial or pleural effusion. Peritoneum: No free intraperitoneal air or fluid. Liver and biliary system: There are a few cysts within the liver, the largest measuring 3.8 x 3.3 cm in the left hepatic lobe. No concerning focal hepatic lesion. Portal vein is patent. The gallbladder is normal. No biliary duct dilation. Spleen and Pancreas: Spleen is normal. The pancreas enhances normally without mass lesion or peripancreatic inflammatory change. Adrenals: Normal. tract: The kidneys enhance normally without suspicious mass or obstruction. Urinary bladder is distended without wall thickening. No renal or ureteral stone. Hysterectomy. No adnexal mass. GI tract: Small hiatal hernia. Stomach is partially filled with fluid and has no wall thickening. No bowel obstruction. Extensive diverticulosis of the descending and sigmoid colon. No associated inflammatory changes to indicate diverticulitis. Appendix is normal. Vasculature and Lymph nodes: Normal caliber aorta. No abdominal or pelvic lymphadenopathy. Musculoskeletal: No concerning osseous lesion. IMPRESSION: 1. No acute inflammatory or obstructive process. 2. Descending and sigmoid colon diverticulosis without diverticulitis. 3. Small hiatal hernia. Dictated by: Dictated on workstation # [id number]
[2020-10-26 21:40] LABS: AMORPHOUS SEDIMENT,UR RARE AMOR URATES /LPF; BACTERIA,URINE FEW /HPF; RBC,URINE RARE /HPF; WBC,URINE 0-2 /HPF
[2020-10-26] MEDS ORDERED: FAMOTIDINE 20MG/2ML IV (PEPCID) IV STA (21:52)
[2020-10-26] MEDS ORDERED: SUCR1TAB PO (21:58)
[2020-10-26] MEDS ORDERED: SUCRALFATE 1 GM (CARAFATE) TAB PO ONE (22:00)
[2020-10-26] MEDS ORDERED: PANTOPRAZOLE 40 MG (PROTONIX) VIAL IV ONE (22:00)
[2020-10-27 00:21] VITALS: BP 150/79
[2020-10-29] MEDS ORDERED: OMEP20CA18 PO (10:01)
== END 2020-10-27 00:03 | disposition home or self-care (01) ==
LOC: EDUNIT# 19:24 → ER 19:25
DX: K44.9 Diaphragmatic hernia without obstruction or gangrene (principal); I10 Essential (primary) hypertension; E78.00 Pure hypercholesterolemia, unspecified; Z79.899 Other long term (current) drug therapy
CPT/HCPCS: 36415; 74177; 80053; 81000; 83690; 83735; 85025; 86141; 87088

== ENCOUNTER 2020-10-30 05:30 | Outpatient (RCR) | payer OTHER ==
[~2020-10-30] VITALS: Ht 160 cm; Wt 83.1 kg
[~2020-10-30 05:30] MED LIST changes: +OMEP20CA18 PO; +SUCR1TAB PO
== END 2020-10-30 09:05 | disposition home or self-care (01) ==
LOC: PREOP 05:30
PROVIDERS: ATTEND Internal Medicine
DX: Z01.818 Encounter for other preprocedural examination (principal)
CPT/HCPCS: 87635

== ENCOUNTER 2020-10-31 07:42 | Day surgery (SDC) | payer OTHER ==
--- NOTE | 2020-10-23 06:28 | HISTORY AND PHYSICAL ---
DATE OF SERVICE: COLONOSCOPY HISTORY AND PHYSICAL HISTORY OF PRESENT ILLNESS: The patient is a 60-year-old white female referred for screening colonoscopy. She had undergone first screening colonoscopy 10 years ago, at which time she had evidence for mild to moderate diverticular disease with no evidence for neoplasia. She reports no significant interval change in her health history. She denies rectal bleeding, abdominal pain or change in bowel habit. Weight has been stable. She has been enjoying retirements. PAST MEDICAL HISTORY: Significant for mixed hyperlipidemia. She has no known history of cardiovascular disease. PAST SURGICAL HISTORY: She had a hysterectomy performed for benign reasons in 1999 and a tonsillectomy performed in 1963. FAMILY HISTORY: Father of complications of cancer had hypertension and hyperlipidemia in his mid to late 70s. Mother in her late 80s with complications of diabetes and dementia. SOCIAL HISTORY: The patient is retired, no past smoking or drinking history. ONLY MEDICATIONS ON ADMISSION: Simvastatin 10 mg daily and metoprolol 50 mg daily. REVIEW OF SYSTEMS: CONSTITUTIONAL: The patient denies night sweats, chills, fever, change in weight. PULMONARY: The patient denies cough, wheezing or shortness of breath. CARDIOVASCULAR: The patient denies orthopnea, PND, pedal edema or dyspnea on exertion. GASTROINTESTINAL: As noted in the HPI. PHYSICAL EXAMINATION: GENERAL: Reveals a pleasant white female appeared to be in no acute distress. VITAL SIGNS: Blood pressure 130/70, weight 183 pounds, unchanged from 10 years ago. HEENT: Unremarkable. Sclerae nonicteric. CHEST: Clear to auscultation. CARDIOVASCULAR: Reveals a regular rate and rhythm without murmur, S3 or S4. ABDOMEN: Soft, supple without mass, organomegaly or tenderness. EXTREMITIES: Reveal no cyanosis, clubbing or edema. Patient is referred by LUCIAN Bingham at Dr. Gutierrez's office. ASSESSMENT AND PLAN: The patient is being set up for screening colonoscopy. Prep instructions were given and questions were answered. I thank you for the referral of this pleasant lady. Job ID: [id number] DocumentID: [id number] Dictated Date: 10/15/2020 15:41:24 Graphic Designer Date: 10/15/2020 16:01:44 Dictated By: MARKUS GILLILAND MD
[~2020-10-31] VITALS: Ht 160 cm; Wt 83.0 kg
--- OUTSIDE RECORDS SUMMARY | 2020-10-31 07:45 | XMS REPORT | CCD ---
Author Author Kelli Gutierrez Organization Hue Gutierrez MD, [facility] Address [address] [place] [address] Phone Care Team Providers Care Telecommunications Facility Examiner Name Role Phone Hue Gutierrez PP Unavailable CCM Unavailable Summary Purpose Interface Exchange Insurance Providers Payer name Policy type / Coverage type Covered democrat ID Effective Begin Date Effective End Date aetna Commercial Insurance [id number] Unknown Unknown Family history Father Diagnosis Age [...] two kids in - one kid in [place] 01/24/2020 Employment Unknown Retired 01/24/[address]: 667687177 Never smoker 01/24/[address]: 312129 Currently drinks alcohol 01/23 Allergies, Adverse Reactions, [...] Fill Instructions simvastatin 10 mg tablet RxNorm: 787702 Take 1 Tablet(s ) Oral every night at bedtime 10/09/2020 07/05/2021 Active metoprolol succinate ER 50 mg tablet,extended release 24 hr RxNorm: 402000 1 Tablet(s) Oral every day 10/01/2020 02/27/2021 Active simvastatin 10 mg tablet RxNorm: 118797 1 Tablet(s) Oral every day 01/24/2020 10/08/2020 Inactive metoprolol succinate ER 50 mg tablet,extended release 24 hr RxNorm: 857284 1 Tablet(s) Oral every day 01/24/2020 10/01/2020 Inactive Medication Administered No Medication Administered data Immunizations Vaccine Codes Date Status Influenza CVX: 135 11/21/2018 Pneumococcal (Adult) CVX: 33 11/21/2018 Tetanus/Diptheria CVX: 09 06/21/2013 Results Observation Observation Code Item Item Code Result Date S ervice Location [facility] P180 Acc #: [id number] 10/14/2020 Unkno wn [facility] P180 Specimen [...] 1: 154/100 Code: 8480-6 BMI: 31.7 Code: 17120-8 Heart Rate 1: 63 bpm Height: 5'3" Code: 8302-2 SpO2: 97% Temperature: 3 6.1 (C) / 97.0 (F) Weight: 179 lbs Code: 19437-8 01/24/2020 Blood Pressure 1: 130/80 Code: 8480-6 BMI: 32.1 Code: 11394-3 Heart Rate 1: 66 bpm Height: 5'3" Code: 8302-2 Respiratory Rate: 18 bpm SpO2: 99% Temperature: 36.4 (C) / 97.5 (F) Weight: 181 lbs Code: 07006-2 Functional Status No Functional Status data Reason For Visit Reason For Visit Effective Dates Notes well woman exam (40-65 years) 10/09/2020 dizziness 01/24/2020 Encounters Encounter Performer Location Codes Date (33213) PREV VISIT EST AGE 40-64 Diagnosis: Well woman exam with routine gynecological exam[ICD10: Z01.419] [facility] CPT-4: 08981 10/09/2020 (52908) PREV VISIT NEW AGE 40-64 Diagnosis: Well adult exam[ICD10: Z00.00] [facility] CPT-4: 07081 01/24/2020 Plan of Care Planned Activity Notes [...] medications. 10/09/2020 [facility]ment: [facility] [phone] ([facility] min[facility] Complex 10/09/2020 Patient Education: Patient Medication Summary Completed 10/09/2020 Care Plan: SCREENINGMAMMOGRAPHYDIGITAL L OINC : 18512-2 Pending 10/09/2020 Care Plan: Cbc With Differential [...] improving. 01/24/2020 Appointment: [facility]el[facility] [address] [facility] [place] New Patient 01/24/2020 Patient Education: Patient [...]
[2020-10-31] MEDS ORDERED: LACTATED RINGERS 1,000 ML IV ONE (07:46)
[2020-10-31] MEDS ORDERED: MIDAZOLAM 2 MG/2 ML (VERSED) VIAL ONE (07:54)
[2020-10-31] MEDS ORDERED: LACTATED RINGERS 1,000 ML IV STA (07:54)
[2020-10-31] MEDS ORDERED: PROPOFOL INJECTION 50 ML IV ONE (07:55)
[2020-10-31] MEDS ORDERED: LIDOCAINE JELLY 2% 6 ML SYRINGE MM PRN (08:00)
[2020-10-31 08:08] VITALS: BP 129/66
--- NOTE | 2020-10-31 08:15 | Pre-Op Note & Conscious Sedat ---
Pre-Operative Progress Note H&P Reviewed The H&P was reviewed, patient examined and no changes noted. Date H&P Reviewed: Oct 31, 2020 Time H&P Reviewed: 07:55 Conscious Sedation Pre-Proced ASA Score 2 For ASA 3 and 4: Consider anesthesia and medical clearance. Also, for patients with a history of failed moderate sedation consider anesthesia. Airway Lungs Heart ASA score ASA 1: a normal healthy patient ASA 2: a patient with a mild systemic disease (mid diabetes, controlled hypertension, obesity ASA 3: a patient with a severe systemic disease that limits activity (angina, COPD, prior Myocardial infarction) ASA 4: a patient with an incapacitating disease that is a constant threat to life (CHF, renal failure) ASA 5: a moribund patient not expected to survive 24 hrs. (ruptured aneurysm) ASA 6: a declared brain- patient whose organs are being harvested. For emergent operations, add the letter E after the classification Mallampati Classification Grade 2 Sedation Plan Analgesia, Amnesia, Plan communicated to team members, Discussed options with patient/fam, Discussed risks with patient/fam The patient is an appropriate candidate to undergo the planned procedure, sedation, and anesthesia. The patient immediately re-assessed prior to indication. MARKUS GILLILAND MD Oct 31, 2020 08:15
[2020-10-31 08:55] VITALS: BP 143/68
[2020-10-31 09:00] VITALS: BP 140/67
[2020-10-31] MEDS ORDERED: ONDANSETRON 4 MG/2 ML (SDV) Z0FRAN ONE (09:18)
[2020-10-31 09:25] VITALS: BP 169/98
--- NOTE | 2020-10-31 09:33 | Anesthesia-General Post-Op ---
MAC Patient Condition Mental Status/LOC: Same as Preop Cardiovascular: Satisfactory Nausea/Vomiting: Absent Respiratory: Satisfactory Pain: Controlled Complications: Absent Post Op Complications Complications None Follow Up Care/Instructions Patient Instructions None needed. Anesthesiology Discharge Order Discharge Order Patient is doing well, no complaints, stable vital signs, no apparent adverse anesthesia problems. No complications reported per nursing. BRODY BARAHONA CRNA Oct 31, 2020 09:33
[2020-10-31 11:00] VITALS: BP 169/98
--- NOTE | 2020-10-31 12:47 | Progress Note ---
Standard Progress Note Progress Notes/Assess & Plan Date Seen by a Provider: Oct 31, 2020 Time Seen by a Provider: 09:55 Progress/Assessment & Plan Called to assess patient who had left jaw swelling, left jaw pain, and unable to open or close her mouth completely after receiving sedation for endoscopy. It was discovered that the patient was obstructing during sedation and required jaw thrust to keep a patent airway. An ice pack was applied to the left jaw and Dr. Dickey was called with instructions to send the patient to his office for evaluation. The patient is agreeable with this plan. We will continue to follow patient as needed postoperatively. TEZ EVERETT CRNA Oct 31, 2020 12:47
--- NOTE | 2020-10-31 14:29 | OPERATIVE REPORT ---
DATE OF SERVICE: PANENDOSCOPY SUMMARY INDICATION FOR THE PROCEDURE: Panendoscopy was performed for screening colonoscopy purposes and gastroesophageal reflux refractory to PPI therapy. DESCRIPTION OF PROCEDURE: The patient was placed in the left lateral decubitus position. The endoscope was inserted in the oral cavity and under direct visualization, esophagus was intubated. The endoscope was passed down the esophagus through the stomach and second portion of the duodenum. Careful inspection was made as the endoscope was withdrawn. FINDINGS: The posterior pharynx, epiglottis, arytenoid aperture and true and false vocal folds were unremarkable to visual inspection. The proximal and mid esophagus were unremarkable. There was a large hiatal hernia. The GE junction was proximally placed at 32 cm from the incisor orifice secondary to this. There is evidence for lower esophageal sphincter laxity, but no evidence for erosive esophagitis or Colón's change. Photograph was obtained. The cardia, fundus, antrum, pylorus, pyloric channel, duodenal bulb and second portion of duodenum were unremarkable. ASSESSMENT: Moderate size 3 to 4 cm hiatal hernia was present with evidence for lower esophageal sphincter laxity, but no evidence for erosive esophagitis or Colón's change. As an aside, the patient did have a significant obstruction of the airway, even on her side strongly suggesting underlying likelihood of significant sleep apnea, would advise consideration for sleep testing. We discussed the importance of not eating or drinking 3 or 4 hours before lying down at night, p.r.n. antacid therapy with continued a.m. proton pump inhibitor therapy indefinitely. If this is not sufficient for control of evening or nighttime symptoms, we will need to increase PPI therapy to b.i.d. We then proceeded with colonoscopy. Prior to undergoing colonoscopy, digital rectal evaluation was performed. Anal sphincter tone was normal and the perianal reflexes intact. No abnormalities were noted on digital inspection of anal canal or distal rectal vault. The colonoscope was then inserted into the rectum and under direct visualization advanced to the cecum. The cecum was identified by identification of ileocecal valve, cecal strap. Photographic documentation was obtained. A careful inspection was made as colonoscope was withdrawn. FINDINGS: There was no evidence for internal or external hemorrhoids and the rectum was unremarkable. Rather severe diverticular disease without evidence for diverticulitis was noted predominantly in the sigmoid and descending colon, but to a lesser extent transverse and ascending colon were involved as well. There were multiple right-sided angiodysplasia cecal areas as well as a small lesion on the upper lip of the ileocecal valve and a small amount of bright red blood. Otherwise, there was no gross evidence for blood throughout the GI tract. Those 2 areas were cauterized with no significant blood loss during cauterization. There were a number scattered throughout the ascending colon that were left and had no evidence for active bleeding. No evidence for neoplasia was identified on today's procedure. ASSESSMENT: 1. Severe diverticular disease predominantly in the sigmoid colon and descending colon was noted without evidence for diverticulitis. There were diverticula scattered however, throughout the transverse colon, ascending colon to a lesser extent. 2. No evidence for neoplasia was noted on today's procedure. 3. Angiodysplasia, two lesions, that had a small amount of bright red blood overlying in the cecum and the upper lip of the ileocecal valve were cauterized today. There were several right-sided lesions left in the ascending colon. They did not have evidence for bleeding. There was no evidence for gross blood throughout, but would advise CBC If one has not been done recently to evaluate for underlying anemia with iron replacement therapy if significant iron deficiency anemia is noted. As noted on EGD evaluation due to severe airway obstruction even on her side during anesthesia would recommend a sleep study. I thank you for the referral of this pleasant lady. Job ID: [id number] DocumentID: [id number] Dictated Date: 10/31/2020 08:59:56 Eyewear Consultant Date: 10/31/2020 14:29:15 Dictated By: MARKUS GILLILAND MD [facility]
== END 2020-10-31 11:00 | disposition home or self-care (01) ==
LOC: ENDO 07:42
PROVIDERS: ATTEND Internal Medicine
DX: Z12.11 Encounter for screening for malignant neoplasm of colon (principal); K21.9 Gastro-esophageal reflux disease without esophagitis; K44.9 Diaphragmatic hernia without obstruction or gangrene; K55.20 Angiodysplasia of colon without hemorrhage; K63.89 Other specified diseases of intestine; K57.31 Diverticulosis of large intestine without perforation or abscess with bleeding; E78.5 Hyperlipidemia, unspecified; E78.2 Mixed hyperlipidemia; I10 Essential (primary) hypertension; Z90.710 Acquired absence of both cervix and uterus; Z90.89 Acquired absence of other organs; Z79.899 Other long term (current) drug therapy

== ENCOUNTER → 2020-11-03 | Outpatient (CLI) | payer OTHER ==
--- NOTE | 2020-11-03 13:45 | Diagnostic Imaging Report ---
INDICATION: Routine screening. COMPARISON: 08/08/2017 and 01/24/2013. TECHNIQUE: 2D and 3D bilateral screening mammography was performed with CAD. FINDINGS: Both breasts are heterogeneously dense, limiting the sensitivity of mammography. The parenchymal pattern is stable. No mass or malignant appearing microcalcifications are seen. The axillae are unremarkable. IMPRESSION: No mammographic features suspicious for malignancy are identified. ACR BI-RADS Category 1: Negative. Result letter will be mailed to the patient. Note: At least 10% of breast cancer is not imaged by mammography. Dictated by: Dictated on workstation # [id number]
== END ==
LOC: RAD 10:34
PROVIDERS: ATTEND Nurse Practitioner Family
DX: Z12.31 Encounter for screening mammogram for malignant neoplasm of breast (principal)
CPT/HCPCS: 77063; 77067

== ENCOUNTER → 2022-10-26 | Outpatient (CLI) | payer OTHER ==
--- NOTE | 2022-10-26 15:34 | Diagnostic Imaging Report ---
INDICATION: Routine screening. Comparison is made with prior mammogram from 11/03/2020 and 08/08/2017. 2-D and 3-D bilateral screening mammography was performed with CAD. Both breasts are heterogeneously dense, limiting the sensitivity of mammography. The parenchymal pattern appears stable. No mass or malignant-appearing microcalcifications are seen. Occasional benign calcifications are noted. Axillae are unremarkable. IMPRESSION: No mammographic features suspicious for malignancy are identified. ACR BI-RADS Category 2: Benign findings. Result letter will be mailed to the patient. Note: At least 10% of breast cancer is not imaged by mammography. BI-RADS Category 2 Dictated by: Dictated on workstation # [id number]
== END ==
LOC: RAD 09:37
PROVIDERS: ATTEND Family Medicine
DX: Z12.31 Encounter for screening mammogram for malignant neoplasm of breast (principal)
CPT/HCPCS: 77063; 77067